=== PATIENT | female | born 1985 | race Caucasian/White ===

== ENCOUNTER → 2017-07-06 | Outpatient (CLI) | payer OTHER ==
--- NOTE | 2017-07-09 09:20 | REP ---
MRI LEFT ANKLE: TECHNIQUE: Sagittal proton density, STIR, axial proton density fat sat, T1, coronal proton density, STIR. The Achilles tendon, anterior and posterior tibial tendons, flexor hallucis longus, flexor digitorum longus and peroneal tendons are all intact without definite abnormality. Anterior and posterior talofibular, calcaneofibular and deltoid ligaments appear intact. Plantar fascia demonstrates no abnormal signal. There is no evidence of plantar fasciitis. No ganglion cyst is seen. There is a small joint effusion at the tibiotalar joint. There is superficial soft tissue edema, predominantly laterally. There appears to be arthritic change at the talocalcaneal joint with subchondral marrow edema on both sides of the joint. No osteochondral defect is seen at the tibiotalar joint. There is a prominent posterior calcaneal process which demonstrates marrow edema within it as well as an os trigonum demonstrating marrow edema, suggestive of posterior ankle impingement syndrome. IMPRESSION: No evidence of tendon or ligament tear. Superficial soft tissue edema laterally. Small joint effusion. Subtalar arthritic change. No osteochondral defect. There is a prominent posterior calcaneal process which demonstrates marrow edema within it as well as an os trigonum demonstrating marrow edema, suggestive of posterior ankle impingement syndrome. Signed by Troy Boo MD 07/09/2017 09:57 A
== END ==
LOC: M PLARAD 15:30
PROVIDERS: ATTEND Physician Assistant
DX: M25.572 Pain in left ankle and joints of left foot (principal); E66.01 Morbid (severe) obesity due to excess calories; M25.472 Effusion, left ankle